=== PATIENT | female | born 1990 | race African-American/Black ===

== ENCOUNTER 2017-07-21 22:55 | Emergency (ER) | payer MEDICAID ==
[~2017-07-21] VITALS: Ht 167.6 cm; Wt 60.0 kg
[2017-07-22] MEDS ORDERED: IBUPROFEN 800MG TABLET PO ONE (01:30)
[2017-07-22 01:43] VITALS: BP 119/63
== END 2017-07-22 01:48 | disposition home or self-care (01) ==
LOC: ER 23:09
DX: H60.392 Other infective otitis externa, left ear (principal)
CPT/HCPCS: 99282